=== PATIENT | female | born 1975 | race Caucasian/White ===

== ENCOUNTER 2023-01-31 05:15 | Day surgery (SDC) | payer OTHER ==
[~2023-01-31] VITALS: Ht 180.3 cm; Wt 79.8 kg
== END 2023-01-31 10:55 | disposition home or self-care (01) ==
LOC: CIR.AMB 05:15
PROVIDERS: ATTEND Obstetrics & Gynecology
DX: N93.9 Abnormal uterine and vaginal bleeding, unspecified (principal); R87.619 Unspecified abnormal cytological findings in specimens from cervix uteri; Z91.013 Allergy to seafood; Z20.822 Contact with and (suspected) exposure to COVID-19